=== PATIENT | male | born 1990 | race Caucasian/White ===

== ENCOUNTER → 2020-07-17 08:15 | Outpatient (CLI) | payer OTHER, SELFPAY ==
[2020-07-17] MEDS: COVID-19 VACC #1, MRNA(MOD) 100 MCG/0.5 ML VIAL IM (08:20)
== END ==
PROVIDERS: PCP Family Medicine; Visit Provider Internal Medicine
DX: Z23 Encounter for immunization (principal)
CPT/HCPCS: 0011A; 91301

== ENCOUNTER → 2020-08-20 08:50 | Outpatient (CLI) | payer OTHER, SELFPAY ==
[2020-08-20] MEDS: COVID-19 VACC #2, MRNA(MOD) 100 MCG/0.5 ML VIAL IM (09:01)
== END ==
PROVIDERS: PCP Family Medicine; Visit Provider Internal Medicine
DX: Z23 Encounter for immunization (principal)
CPT/HCPCS: 0012A; 91301

== ENCOUNTER → 2023-12-29 06:54 | Outpatient (CLI) | payer BC, SELFPAY ==
--- NOTE | 2023-12-29 06:57 | DI.US.S_ITS ---
PROCEDURE: US SCROTUM INDICATIONS: TESTICULAR NODULE TECHNIQUE: Real-time scanning was performed of the scrotum and testicles, with image documentation. Color and pulse Doppler interrogation was performed of both testicles. COMPARISON: None. FINDINGS: Right: Testicle is normal in size at 3.4 x 3.1 x 2.1 cm, and homogenous in echotexture. Epididymis is normal in overall size and morphology. No hydrocele or varicoceles. Overlying scrotal skin is normal in thickness. Left: Testicle is normal in size at 5.9 x 2.8 x 1.9 cm, and homogeneous in echotexture. 2 microcalcifications are present, likely secondary to prior infection or trauma. Epididymis is normal in overall size and morphology. No hydrocele or varicoceles. Overlying scrotal skin is normal in thickness. Doppler: Color and pulse Doppler demonstrate normal and symmetric arterial flow in both testicles. IMPRESSION: 1. No sonographic abnormality deep to the area of palpable abnormality at the level of the left epididymal tail. 2. No other sonographic abnormality of the testes. Dictated by: Alfa Bone M.D. on 12/29/2023 at 15:18 Approved by: Alfa Bone M.D. on 12/29/2023 at 15:25
== END ==
PROVIDERS: PCP Family Medicine; Referring Provider Family Medicine; Visit Provider Family Medicine
DX: N50.89 Other specified disorders of the male genital organs (principal)
CPT/HCPCS: 76870; 93975